=== PATIENT | male | born 1970 | race Caucasian/White ===

== ENCOUNTER → 2016-11-12 | Outpatient (CLI) | payer BC ==
[~2016-11-12] MED LIST: ASPIRIN 81M81 MG/TA2 PO; FISH OIL SUPER1 SGL PO; PRIL40; PRINIVIL40 MG PO; ZOCOR5 MG PO
== END ==
LOC: COL.RAD 08:56
DX: Q63.1 Lobulated, fused and horseshoe kidney (principal); N13.0 Hydronephrosis with ureteropelvic junction obstruction
CPT/HCPCS: Q9967

== ENCOUNTER → 2016-12-03 | Outpatient (CLI) | payer BC | LOC: COL.RAD 09:15 | DX: N28.89 Other specified disorders of kidney and ureter (principal); N13.39 Other hydronephrosis; Q63.1 Lobulated, fused and horseshoe kidney | CPT/HCPCS: A9562 ==

== ENCOUNTER 2016-12-23 09:12 | Day surgery (SDC) | payer BC ==
[~2016-12-23] VITALS: Ht 165.1 cm; Wt 72.2 kg
[2016-12-23 10:35] VITALS: BP 118/74; PULSE 65; TEMP 98.1
[2016-12-23 11:26] LABS: BASO % 0.5 % (0.0-2.0); EOS # 0.2 (0.0-0.7); EOS % 2.6 % (0-4.0); GRAN # 3.7 (1.4-6.5); HEMATOCRIT 43.8 % (42.0-52.0); HEMOGLOBIN 15.8 g/dl (13.5-18.0); LYMPH # 1.8 (1.2-3.4); LYMPH % 29.7 % (20.0-51.0); MEAN CELL VOLUME 94 fl (80.0-100.0); MEAN CORPUSCULAR HEMOGLOBIN 34 pg (27.0-31.0); MEAN CORPUSCULAR HGB CONC 36 g/dl (33.0-37.0); MONO # 0.4 (0.1-0.6); MONO % 5.9 % (1.7-9.3); PLATELET COUNT 201 K/mm3 (130-400); RED BLOOD COUNT 4.66 M/mm3 (4.20-5.60); REDCELL DISTRIBUTION WIDTH-CV 12.4 % (11.5-14.5); WHITE BLOOD COUNT 6.1 K/mm3 (4.8-10.8)
[2016-12-23 11:37] LABS: CALCIUM 9.4 mg/dL (8.4-10.2); CREATININE, serum 0.8 mg/dL (0.66-1.25); POTASSIUM 4.1 mmol/L (3.4-5.0)
[2016-12-23 12:54] VITALS: BP 119/75; PULSE 52; TEMP 97.6
[2016-12-23 13:49] VITALS: BP 123/83; PULSE 64
[2016-12-23 13:57] VITALS: BP 120/90; PULSE 60
== END 2016-12-23 14:04 | disposition home or self-care (01) ==
LOC: SDCO 09:12
PROVIDERS: Urology
DX: Q63.1 Lobulated, fused and horseshoe kidney (principal); K22.70 Barrett's esophagus without dysplasia; I10 Essential (primary) hypertension
CPT/HCPCS: J2704; J3010; J7120; Q9967

== ENCOUNTER → 2018-08-20 | Outpatient (CLI) | payer BC | LOC: ZCOL.LAB 16:49 | DX: Z01.89 Encounter for other specified special examinations (principal) ==

== ENCOUNTER 2022-05-27 01:09 | Emergency (ER) | payer BC ==
[~2022-05-27] VITALS: Ht 165.1 cm; Wt 72.7 kg
[2022-05-27] MEDS ORDERED: LOSARTAN POTASSIUM/H (01:14)
[2022-05-27 01:15] VITALS: TEMP 98.6
[2022-05-27] MEDS ORDERED: ASPIRIN 81M81 MG/TA2 PO (01:20)
[2022-05-27] MEDS ORDERED: HYZAAR 50-12.1 UDTAB PO (01:20)
[2022-05-27 01:29] LABS: BASO # 0.1 K/mm3 (0.0-0.2); BASO % 0.7 % (0.0-2.0); EOS # 0.2 K/mm3 (0.0-0.7); EOS % 3.2 % (0.0-4.0); GRAN # 3.6 K/mm3 (1.4-6.5); GRAN % 50.7 % (42.2-75.2); HEMATOCRIT 39.8 % (42.0-52.0); HEMOGLOBIN 14.2 g/dl (13.5-18.0); LYMPH # 2.5 K/mm3 (1.2-3.4); LYMPH % 35.2 % (20.0-51.0); MEAN CELL VOLUME 94 fl (80.0-100.0); MEAN CORPUSCULAR HEMOGLOBIN 33 pg (27-31); MEAN CORPUSCULAR HGB CONC 36 g/dl (33.0-37.0); MEAN PLATELET VOLUME 8.9 fl (7.4-10.4); MONO # 0.7 K/mm3 (0.1-0.6); MONO % 10.1 % (1.7-9.3); PLATELET COUNT 233 K/mm3 (130-400); RED BLOOD COUNT 4.25 M/mm3 (4.20-5.60); REDCELL DISTRIBUTION WIDTH-CV 12.4 % (11.5-14.5)
[2022-05-27 01:55] LABS: ALBUMIN 4.1 gm/dL (3.5-5.0); BILIRUBIN,TOTAL 0.4 mg/dL (0.2-1.2); CALCIUM 9.6 mg/dL (8.4-10.2); POTASSIUM 3.4 mmol/L (3.5-4.5); TOTAL PROTEIN 7.2 gm/dL (6.2-8.1)
[2022-05-27 02:01] LABS: TROPONIN-I 0.014 ng/mL (0.00-0.033)
[2022-05-27 05:00] VITALS: BP 157/102; PULSE 74
== END 2022-05-27 05:10 | disposition home or self-care (01) ==
LOC: COL.ER 01:09
PROVIDERS: Emergency Medicine
DX: R07.89 Other chest pain (principal); Z28.310 Unvaccinated for COVID-19